=== PATIENT | female | born 1990 | race Caucasian/White ===

== ENCOUNTER 2019-04-07 15:51 | Observation (INO) | payer MEDICAID ==
[~2019-04-07] VITALS: Ht 160 cm; Wt 101.2 kg
[2019-04-07 16:25] VITALS: BP 125/57
[2019-04-07] MEDS ORDERED: TERBUTALINE 1 MG/ML VIAL SUBQ SCH (16:55)
[2019-04-07] MEDS ORDERED: TERBUTALINE 1 MG/ML VIAL SUBQ ONE (17:07)
[2019-04-07] MEDS ORDERED: TERBUTALINE 2.5 MG TAB PO SCH (18:25)
[2019-04-07] MEDS ORDERED: TERBUTALINE 5 MG ONE (18:35)
== END 2019-04-07 19:45 | disposition home or self-care (01) ==
LOC: MLD 15:51
PROVIDERS: ADMIT Obstetrics & Gynecology; ATTEND Obstetrics & Gynecology
DX: O26.893 Other specified pregnancy related conditions, third trimester (principal); R10.9 Unspecified abdominal pain; O99.89 Other specified diseases and conditions complicating pregnancy, childbirth and the puerperium; M54.9 Dorsalgia, unspecified; Z3A.36 36 weeks gestation of pregnancy
CPT/HCPCS: 36415; 81000; 85379; 96372; G0378; J3105

== ENCOUNTER 2019-04-08 12:55 | Outpatient (CLI) | payer MEDICAID | END 2019-04-08 20:57 | disposition home or self-care (01) | LOC: MUS 12:55 | DX: Z34.83 Encounter for supervision of other normal pregnancy, third trimester (principal); Z3A.32 32 weeks gestation of pregnancy | CPT/HCPCS: 76805; Q0092 ==

== ENCOUNTER 2019-04-18 17:19 | Emergency (ER) | payer MEDICAID ==
[~2019-04-18] VITALS: Ht 160 cm; Wt 110.2 kg
[2019-04-18 17:25] VITALS: BP 123/79
--- NOTE | 2019-04-18 17:25 | NUR ---
PATIENT TRIAGED AT THIS TIME. VSS. CLEARED BY ER MD GOMEZ TO SEND TO [place]. CALLED REPORTS TO JOHN PAUL CONCEPCION RN.
[2019-04-18] MEDS ORDERED: PREN-380 PO (17:58)
[2019-04-18 19:05] LABS: BASOPHILS % (AUTO) 0.2 % (0.0-2.0); EOSINOPHILS # (AUTO) 0.1 K/uL (0-0.4); EOSINOPHILS % (AUTO) 1.4 % (0.0-4.0); HEMATOCRIT 33.6 % (36-48); HEMOGLOBIN 11.4 g/dL (12.0-16.0); LYMPHOCYTES # (AUTO) 1.9 K/uL (2.5-16.5); LYMPHOCYTES % (AUTO) 17.4 % (20.5-51.1); MEAN CORPUSCULAR HEMOGLOBIN 29 pg (27-31); MEAN CORPUSCULAR HGB CONC 34 g/dL (33-37); MEAN CORPUSCULAR VOLUME 86.3 fL (80-94); MONOCYTES # (AUTO) 0.6 K/uL (0.8-1.0); MONOCYTES % (AUTO) 5.9 % (1.7-9.3); NEUTROPHILS % (AUTO) 75.1 % (42.2-75.2); PLATELET COUNT (AUTO) 263 K/uL (140-450); RED CELL DISTRIBUTION WIDTH 15.3 % (11.6-13.7); WHITE BLOOD COUNT (AUTO) 10.6 K/uL (4.8-10.8)
[2019-04-18 19:18] LABS: APPEARANCE,URINE HAZY (CLEAR); BILIRUBIN,URINE 1+ (NEGATIVE); BLOOD, URINE NEGATIVE (NEGATIVE); COLOR,URINE YELLOW (YELLOW); LEUKOCYTE ESTERASE ,URINE NEGATIVE (NEGATIVE); NITRITE, URINE NEGATIVE (NEGATIVE); UGLUCOSE NEGATIVE (NEGATIVE)
[2019-04-18 19:46] LABS: PROTHROMBIN TIME 9.1 secs (10.8-13.4)
--- NOTE | 2019-04-18 21:18 | NUR ---
Tiffany paz in [facility] - 04/18/19 at 2119 by TEE PT TAKEN TO BED 12
--- NOTE | 2019-04-18 21:20 | NUR ---
RECEIVED REPORT FROM BENJI WALDEN FROM [facility], PT TAKEN TO BED 12 WITH .
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
[2019-04-18] MEDS ORDERED: ACETAMINOPHEN 325 MG TAB PO ONE (22:15)
--- NOTE | 2019-04-18 22:25 | NUR ---
PT C/O HEADACHE. DR GIRARD MADE AWARE. VERBAL ORDER FOR TYLENOL 500MG PO AT THIS TIME. PT LAYING IN BED, AT BEDSIDE. ADMINISTERED TYLENOL PO ORDERED WITH EDUCATION. VSS. ALL NEEDS MET.
--- NOTE | 2019-04-18 23:24 | NUR ---
PT LAYING IN BED, AT BEDSIDE. REPORTS IMPROVEMENT IN HEADACHE AFTER TYLENOL PO. VSS, RR EVEN AND UNLABORED. ALL NEEDS MET.
[2019-04-18 23:37] VITALS: BP 112/59
--- NOTE | 2019-04-18 23:37 | NUR ---
PATIENT DISCHARGED BY DR. GIRARD. INSTRUCTIONS WERE PROVIDED BY DR. GIRARD.
== END 2019-04-18 23:37 | disposition home or self-care (01) ==
LOC: MED 17:19 → UNDOADMOB 17:35 → MLD 17:35 → MED 23:37
DX: O26.893 Other specified pregnancy related conditions, third trimester (principal); S33.5XXA Sprain of ligaments of lumbar spine, initial encounter; S60.221A Contusion of right hand, initial encounter; Z3A.34 34 weeks gestation of pregnancy; Z79.899 Other long term (current) drug therapy; V49.49XA Driver injured in collision with other motor vehicles in traffic accident, initial encounter; Y93.89 Activity, other specified; Y92.488 Other paved roadways as the place of occurrence of the external cause; Y99.8 Other external cause status
CPT/HCPCS: 36415; 76805; 76819; 81003; 85025; 85379; 85384; 85610; 85730; 99284; Q0092

== ENCOUNTER 2019-05-14 14:17 | Observation (INO) | payer MEDICAID ==
[~2019-05-14] VITALS: Ht 160 cm; Wt 117.5 kg
[~2019-05-14 14:17] MED LIST: PREN-380 PO
[2019-05-14 15:39] LABS: BASOPHILS % (AUTO) 0.2 % (0.0-2.0); EOSINOPHILS # (AUTO) 0.2 K/uL (0-0.4); EOSINOPHILS % (AUTO) 2.7 % (0.0-4.0); LYMPHOCYTES # (AUTO) 1.7 K/uL (2.5-16.5); LYMPHOCYTES % (AUTO) 21.2 % (20.5-51.1); MEAN CORPUSCULAR HEMOGLOBIN 28 pg (27-31); MEAN CORPUSCULAR HGB CONC 33 g/dL (33-37); MEAN CORPUSCULAR VOLUME 84.3 fL (80-94); MONOCYTES # (AUTO) 0.6 K/uL (0.8-1.0); MONOCYTES % (AUTO) 7.5 % (1.7-9.3); NEUTROPHILS # (AUTO) 5.4 K/uL (1.8-7.7); NEUTROPHILS % (AUTO) 68.4 % (42.2-75.2); PLATELET COUNT (AUTO) 243 K/uL (140-450); RED BLOOD CELL COUNT(AUTO) 3.92 MIL/uL (4.20-5.40); RED CELL DISTRIBUTION WIDTH 15.2 % (11.6-13.7); WHITE BLOOD COUNT (AUTO) 7.8 K/uL (4.8-10.8)
[2019-05-14 16:06] LABS: URIC ACID 4.8 mg/dL (2.6-7.2)
[2019-05-14 16:08] LABS: ANION GAP 13.9 (8-16); CARBON DIOXIDE 21.7 mmol/L (21-32); CREATININE 0.5 mg/dL (0.6-1.3); POTASSIUM 3.6 mmol/L (3.5-5.1)
[2019-05-14 16:14] LABS: ALBUMIN 2.1 g/dL (3.4-5.0); TOTAL BILIRUBIN 0.2 mg/dL (0.0-1.0)
[2019-05-14 17:40] LABS: TOTAL PROTEIN URINE 25.8 MG/DL
== END 2019-05-14 18:26 | disposition home or self-care (01) ==
LOC: MLD 14:17
PROVIDERS: ADMIT Obstetrics & Gynecology; ATTEND Obstetrics & Gynecology
DX: O13.3 Gestational [pregnancy-induced] hypertension without significant proteinuria, third trimester (principal); O99.213 Obesity complicating pregnancy, third trimester; Z3A.37 37 weeks gestation of pregnancy
CPT/HCPCS: 36415; 80053; 82570; 84156; 84550; 85025; 85384; G0378; 59025

== ENCOUNTER 2019-05-15 14:10 | Observation (INO) | payer MEDICAID ==
[2019-05-15 19:49] VITALS: BP 107/58
== END 2019-05-15 18:35 | disposition home or self-care (01) ==
LOC: MLD 14:10
PROVIDERS: ADMIT Obstetrics & Gynecology; ATTEND Obstetrics & Gynecology
DX: O36.8130 Decreased fetal movements, third trimester, not applicable or unspecified (principal); O99.89 Other specified diseases and conditions complicating pregnancy, childbirth and the puerperium; M54.5 Low back pain; Z3A.37 37 weeks gestation of pregnancy
CPT/HCPCS: 59025; 76819; 81000; G0378; Q0092

== ENCOUNTER 2019-05-28 07:47 | Inpatient (IN) | payer MEDICAID ==
[~2019-05-28] VITALS: Ht 160 cm; Wt 117.9 kg
[2019-05-28] MEDS ORDERED: LACTATED RINGERS 1,000 ML IV SCH (08:14)
[2019-05-28] MEDS ORDERED: CITRIC ACID/SODIUM CITRATE 30 ML UDC PO SCH (08:15)
[2019-05-28 09:02] LABS: BASOPHILS % (AUTO) 0.2 % (0.0-2.0); EOSINOPHILS # (AUTO) 0.2 K/uL (0-0.4); EOSINOPHILS % (AUTO) 3.2 % (0.0-4.0); HEMATOCRIT 31.5 % (36-48); HEMOGLOBIN 10.4 g/dL (12.0-16.0); LYMPHOCYTES # (AUTO) 1.6 K/uL (2.5-16.5); LYMPHOCYTES % (AUTO) 22.9 % (20.5-51.1); MEAN CORPUSCULAR HEMOGLOBIN 28 pg (27-31); MEAN CORPUSCULAR HGB CONC 33 g/dL (33-37); MEAN CORPUSCULAR VOLUME 84.4 fL (80-94); MONOCYTES # (AUTO) 0.6 K/uL (0.8-1.0); MONOCYTES % (AUTO) 8.1 % (1.7-9.3); NEUTROPHILS # (AUTO) 4.7 K/uL (1.8-7.7); NEUTROPHILS % (AUTO) 65.6 % (42.2-75.2); PLATELET COUNT (AUTO) 217 K/uL (140-450); RED BLOOD CELL COUNT(AUTO) 3.73 MIL/uL (4.20-5.40); RED CELL DISTRIBUTION WIDTH 15.2 % (11.6-13.7); WHITE BLOOD COUNT (AUTO) 7.1 K/uL (4.8-10.8)
[2019-05-28 09:03] LABS: APPEARANCE,URINE SL CLOUDY (CLEAR); BILIRUBIN,URINE NEGATIVE (NEGATIVE); BLOOD, URINE NEGATIVE (NEGATIVE); COLOR,URINE YELLOW (YELLOW); LEUKOCYTE ESTERASE ,URINE TRACE (NEGATIVE); NITRITE, URINE NEGATIVE (NEGATIVE); UGLUCOSE NEGATIVE (NEGATIVE)
[2019-05-28 09:39] LABS: CARBON DIOXIDE 26.1 mmol/L (21-32); CREATININE 0.6 mg/dL (0.6-1.3); POTASSIUM 4.1 mmol/L (3.5-5.1)
[2019-05-28 09:49] LABS: TOTAL BILIRUBIN 0.2 mg/dL (0.0-1.0)
[2019-05-28 09:52] LABS: RBC,URINE 0-5 /HPF (0-5)
[2019-05-28] MEDS ORDERED: METHYLERGONOVINE 0.2 MG/ML AMP ONE ×2 (12:48→13:45)
[2019-05-28] MEDS ORDERED: ePHEDrine 50 MG/ML VIAL ONE (12:48)
[2019-05-28] MEDS ORDERED: BUPIVACAINE-MPF 0.75% 10 ML VIAL INJ ONE (12:48)
[2019-05-28] MEDS ORDERED: MORPHINE PRES FREE 10 MG/10 ML AMP IV ONE (13:05)
[2019-05-28] MEDS ORDERED: fentaNYL 0.05 MG/ML VIAL ONE (13:05)
[2019-05-28] MEDS ORDERED: OXYTOCIN 20 UNITS/LR PREMIX 1,000 ML IV ONE ×2 (15:00→21:40)
[2019-05-28] MEDS ORDERED: MEASLES, MUMPS, AND RUBELLA 1 VIAL SQVAC PRN (17:55)
[2019-05-28] MEDS ORDERED: METHYLERGONOVINE 0.2 MG/ML AMP IM PRN (17:55)
[2019-05-28] MEDS ORDERED: OXYTOCIN 20 UNITS in LACTATED RINGERS 1,000 ML IV SCH (17:55)
[2019-05-28] MEDS: IBUPROFEN 800 MG TAB PO PRN (18:41)
[2019-05-28] MEDS: SIMETHICONE 80 MG TAB.CHEW PO PRN (18:43)
[2019-05-28 19:52] VITALS: BP 124/60
[2019-05-29] MEDS: DOCUSATE SOD/SENNA 50/8.6 MG 1 TAB PO SCH (04:20)
[2019-05-29 06:07] LABS: BASOPHILS % (AUTO) 0.1 % (0.0-2.0); EOSINOPHILS # (AUTO) 0.1 K/uL (0-0.4); EOSINOPHILS % (AUTO) 1.5 % (0.0-4.0); HEMATOCRIT 28.5 % (36-48); HEMOGLOBIN 9.5 g/dL (12.0-16.0); LYMPHOCYTES # (AUTO) 1.7 K/uL (2.5-16.5); LYMPHOCYTES % (AUTO) 20.1 % (20.5-51.1); MEAN CORPUSCULAR HEMOGLOBIN 28 pg (27-31); MEAN CORPUSCULAR HGB CONC 33 g/dL (33-37); MEAN CORPUSCULAR VOLUME 83.8 fL (80-94); MONOCYTES # (AUTO) 0.7 K/uL (0.8-1.0); MONOCYTES % (AUTO) 8.2 % (1.7-9.3); NEUTROPHILS # (AUTO) 5.8 K/uL (1.8-7.7); NEUTROPHILS % (AUTO) 70.1 % (42.2-75.2); PLATELET COUNT (AUTO) 212 K/uL (140-450); RED BLOOD CELL COUNT(AUTO) 3.41 MIL/uL (4.20-5.40); RED CELL DISTRIBUTION WIDTH 15.4 % (11.6-13.7); WHITE BLOOD COUNT (AUTO) 8.3 K/uL (4.8-10.8)
[2019-05-29] MEDS ORDERED: diphenhydrAMINE 50 MG/ML VIAL IVP PRN ×2 (06:55→07:25)
[2019-05-29] MEDS ORDERED: TEMAZEPAM 15 MG CAP PO PRN (08:00)
[2019-05-29] MEDS: oxyCODONE/APAP 5/325 MG 1 TAB TAB PO PRN ×2 (12:51→20:35)
[2019-05-29] MEDS: IBUPROFEN 800 MG TAB PO PRN (13:54)
[2019-05-30] MEDS: oxyCODONE/APAP 5/325 MG 1 TAB TAB PO PRN ×2 (05:15→17:13)
[2019-05-30] MEDS: IBUPROFEN 800 MG TAB PO PRN ×2 (06:03→21:46)
--- NOTE | 2019-05-30 06:56 | NUR ---
PATIENT HAS BEEN SCREENED AND CATEGORIZED LOW NUTRITION RISK. PATIENT WILL BE SEEN WITHIN 7 DAYS OF ADMISSION. 06/04/19 ASIM AGEE MS, RDN
[2019-05-30] MEDS: SULFAMETH/TRIMETH DS 800/160MG 1 TAB PO SCH ×2 (10:21→21:46)
[2019-05-30] MEDS: SIMETHICONE 80 MG TAB.CHEW PO PRN (17:18)
[2019-05-30] MEDS: DOCUSATE SOD/SENNA 50/8.6 MG 1 TAB PO SCH (21:12)
[2019-05-31] MEDS: IBUPROFEN 800 MG TAB PO PRN (07:55)
[2019-05-31] MEDS: SULFAMETH/TRIMETH DS 800/160MG 1 TAB PO SCH ×2 (09:10→21:02)
[2019-05-31] MEDS: SIMETHICONE 80 MG TAB.CHEW PO PRN (21:10)
[2019-06-01] MEDS: IBUPROFEN 800 MG TAB PO PRN (07:01)
[2019-06-01] MEDS: SIMETHICONE 80 MG TAB.CHEW PO PRN (08:43)
[2019-06-01] MEDS: SULFAMETH/TRIMETH DS 800/160MG 1 TAB PO SCH (08:43)
[2019-06-01] MEDS: oxyCODONE/APAP 5/325 MG 1 TAB TAB PO PRN (08:54)
[2019-06-01] MEDS ORDERED: ASCO500T45 PO (13:12)
[2019-06-01] MEDS ORDERED: FERR325E14 PO (13:12)
[2019-06-01] MEDS ORDERED: SULF-59 PO (13:12)
[2019-06-01] MEDS ORDERED: DOCU-299 PO (13:13)
== END 2019-06-01 15:10 | disposition home or self-care (01) | DRG 540 ==
LOC: MLD 07:47 → MFCC 13:53
PROVIDERS: ADMIT Obstetrics & Gynecology; ATTEND Obstetrics & Gynecology
PROC: 3E0234Z Introduction of Serum, Toxoid and Vaccine into Muscle, Percutaneous Approach (ICD-10-PCS; 2019-05-28)
PROC: 10D00Z1 Extraction of Products of Conception, Low, Open Approach (ICD-10-PCS; principal; 2019-05-28 13:00)
DX: O32.1XX0 Maternal care for breech presentation, not applicable or unspecified (principal); E66.9 Obesity, unspecified; O99.214 Obesity complicating childbirth; O34.211 Maternal care for low transverse scar from previous cesarean delivery; O99.89 Other specified diseases and conditions complicating pregnancy, childbirth and the puerperium; N73.6 Female pelvic peritoneal adhesions (postinfective); Z23 Encounter for immunization; Z37.0 Single live birth; Z3A.39 39 weeks gestation of pregnancy; Z82.49 Family history of ischemic heart disease and other diseases of the circulatory system; Z83.3 Family history of diabetes mellitus; Z87.09 Personal history of other diseases of the respiratory system; Z91.19 Patient's noncompliance with other medical treatment and regimen
CPT/HCPCS: 36415; 51702; 80053; 81001; 85025; 86592; 86886; 86900; 86901; 87081; 87086; 87186; 90707; 90715; J0690; J1200; J2210; J2270; J2590; J3010; J3490; J7060; J7120